=== PATIENT | female | born 1990 | race African-American/Black ===

== ENCOUNTER 2017-06-23 11:45 | Emergency (ER) | payer BC, OTHER, SELFPAY ==
[2017-06-23 12:31] LABS: Bilirubin Negative (Negative); Blood, Urine Negative (Negative); Glucose, Urine (Dipstick) Negative (Negative); Ketone, Urine Negative (Negative); Nitrite Negative (Negative); Protein, Urine (Dipstick) Negative (Neg-Trace); Urobilinogen 0.2 mg/dL (0.2-1.0)
[2017-06-23 12:33] LABS: Bacteria/HPF Rare-Few HPF (None Seen); Hyaline Casts/LPF 0-3 HYALINE CAST LPF (0-3 Hyaline); RBC/HPF 0-3 HPF (0-3)
== END 2017-06-23 15:17 | disposition left against medical advice (07) ==
LOC: ERS 11:45
DX: Z53.21 Procedure and treatment not carried out due to patient leaving prior to being seen by health care provider (principal)
CPT/HCPCS: 81003; 81015

== ENCOUNTER 2017-11-13 17:08 | Inpatient (IN) | payer OTHER ==
[~2017-11-13 17:08] MED LIST: Acetaminophen 500 MG TAB PO PRN; HYDROcodone/Acetaminophen 5/325 mg Tablet PO PRN; Ibuprofen 800 MG TAB PO PRN; LR / Pitocin 40 units/1000 ml 1,000 ML IV PRN; Lidocaine 1% (PF) 30 ML VIAL SC PRN; Misoprostol 200 MCG TAB PR PRN; Ondansetron HCl/PF 4 MG/2 ML Vial IVP PRN; Promethazine HCl 25 MG/ML VIAL IM PRN
[2017-11-13 17:32] VITALS: BMI 35.7
[2017-11-13] MEDS: Lactated Ringer's 1,000 ML IV SCH (17:40)
[2017-11-13 18:03] LABS: Hemoglobin 12.7 g/dL (12.0-16.0); Mean Corpuscular HGB CONC 32.4 g/dL (32.0-36.0); Mean Corpuscular Volume 86.5 fl (81.0-99.0); Mean Platelet Volume 9.6 fL (7.4-10.4); Platelet Count 127 thou/uL (130-400); RBC Distribution Width 14.3 % (11.5-14.5); Red Blood Cell (RBC) Count 4.54 mill/uL (4.20-5.40); White Blood Cell (WBC) Count 8.8 thou/uL (4.8-10.8)
[2017-11-13] MEDS: Misoprostol 100 MCG TAB VAG SCH ×2 (18:17→21:57)
[2017-11-13] MEDS ORDERED: Penicillin G Potassium 5 MILL.UNITS in Sodium Chloride 0.9% 100 ML IVPB SCH (18:30)
[2017-11-13 18:56] LABS: Syphilis Antibody Nonreactive (Nonreactive); Syphilis Antibody Index 0.03 S/CO (<1.00 Non-Reactive)
[2017-11-13 20:03] LABS: HBSAg Index 0.14 S/CO (0-0.99); Hep B Surf Ag Non-Reactive S/CO (NonReactive)
[2017-11-13] MEDS: Penicillin G 2.5 MILL.units 2.5 MILL.UNITS in Premix Bag 1 BAG IVPB SCH (21:57)
[2017-11-14] MEDS: Lactated Ringer's 1,000 ML IV SCH ×2 (01:13→08:20)
[2017-11-14] MEDS: Penicillin G 2.5 MILL.units 2.5 MILL.UNITS in Premix Bag 1 BAG IVPB SCH ×6 (01:13→21:31)
[2017-11-14] MEDS: Misoprostol 100 MCG TAB VAG SCH ×2 (01:14→03:11)
[2017-11-14] MEDS ORDERED: LR 500 ML/Oxytocin 10 units 500 ML ONE (03:04)
[2017-11-14] MEDS ORDERED: DISCONTINUE ALL PREVIOUS NARCOTICS FS SCH (04:45)
[2017-11-14] MEDS: Bupivacaine 0.5% 20 ML, Fentanyl 400 MCG in Sodium Chloride 0.9% 72 ML EPIDURAL SCH ×2 (05:50→14:10)
[2017-11-14] MEDS ORDERED: Acetaminophen 325 MG TAB PO PRN (05:53)
[2017-11-14] MEDS ORDERED: ePHEDrine/0.9% NaCl/PF SYRINGE 50 mg/10 ml SLOW IVP PRN (05:53)
[2017-11-14] MEDS ORDERED: Naloxone HCl 0.4 mg/ml Vial IVP PRN ×2 (05:53)
[2017-11-14] MEDS ORDERED: Ondansetron HCl/PF 4 MG/2 ML Vial IVP PRN (05:53)
[2017-11-14] MEDS ORDERED: Lactated Ringer's 500 ML IV PRN (05:53)
[2017-11-14] MEDS ORDERED: Eucerin (Mineral Oil/Petrolatum,White) 30 gm Jar TOP PRN (05:53)
[2017-11-14] MEDS ORDERED: Promethazine HCl 25 MG/ML VIAL IM PRN (05:53)
[2017-11-14] MEDS ORDERED: diphenhydrAMINE 50 MG/ML VIAL IVP PRN (05:53)
[2017-11-14] MEDS ORDERED: Communication Order-Pharmacy FS SCH (06:00)
[2017-11-14] MEDS ORDERED: Fentanyl 4mcg/Marcaine 0.1% Cassette 100 ML EPIDURAL SCH (06:00)
[2017-11-14] MEDS ORDERED: FLU VACC QS2017-18 36 mo. & older 0.5 ML SYRINGE IM ONE (09:00)
[2017-11-14] MEDS ORDERED: Dextrose 5%-Lactated Ringers 1,000 ML IV SCH (09:45)
--- NOTE | 2017-11-14 11:23 | PDOC.EVN ---
Event Note - Event Note Event Note: Neonatology Note I was notified by nursery staff that delivery attendance was requested for " arrhythmia" but no additional information available. I reviewed mom's chart and was unremarkable except for ?sickle cell carrier and 2 vessel umbilical cord. Currently undergoing induction. Discussed with L&D nurse and reports an "audible arrhythmia" after placement of a FSE and recurrent late decels. I was asked to discuss with mother the concern for the arrhythmia. I presented to mom's room and introduced myself. She was laying on her side with face mask in place. Baseline FHT was 120 with occasional skipped beat, no tachycardia. I discussed with mom that our presence was requested at the delivery but evaluation for "arrhythmia" would include placement on a monitor/EKG to determine nature of the rhythm and the baby would be taken to the nursery right after delivery and placed on a monitor. I explained that the skipped beats were likely PAC/PVC which are very common in labor and resolved shortly after delivery. If this was confirmed on monitor/EKG the patient would be brought immediately back to her room. Mother reported no history of arrhythmia in the family. Mom had the opportunity to ask questions.
[2017-11-14] MEDS ORDERED: Preparation H Ointment 28 GM TUBE PR PRN (22:18)
[2017-11-14] MEDS ORDERED: Milk Of Magnesia 30 ML UDCUP PO PRN (22:18)
[2017-11-14] MEDS ORDERED: Bisacodyl 10 MG SUPP PR PRN (22:18)
[2017-11-14] MEDS ORDERED: traMADol HCl 50 MG TAB PO PRN (22:18)
[2017-11-14] MEDS ORDERED: diphenhydrAMINE 25 MG CAP PO PRN (22:18)
--- NOTE | 2017-11-14 22:21 | PDOC.OPDEL ---
OB Operative/Delivery Note Delivery Dr/Surgeon: Alyssa Pre-Delivery Diagnosis: elective induction Procedure/Post Delivery Dx: spontaneous vaginal delivery Weeks gestation: 40 - Findings A Sex: male Weight: 8 lb 9 oz - 1 min: 8 - 5 min: 9 - Additional Findings/Plan Placenta delivered: spontaneous Repaired Obstetrical Laceration: right labial (1st degree perineal) Estimated blood loss: 300ml Post delivery plan: routine recovery
[2017-11-14] MEDS ORDERED: LR / Pitocin 40 units/1000 ml 1,000 ML IV SCH (22:30)
[2017-11-15] MEDS: Ibuprofen 800 MG TAB PO SCH ×3 (06:16→21:14)
--- NOTE | 2017-11-15 08:15 | PDOC.PP ---
Post Progress Note Post Day #: 1 PO intake tolerated: yes Flatus: yes Ambulation: yes Vital Signs (12 hours) Temp Pulse Resp BP BP Pulse Ox 11/15/17 07:56 97.9 F 82 20 117/56 L 11/15/17 05:00 97.6 F 80 20 11/15/17 04:00 97.6 F 80 20 130/61 11/15/17 01:40 99.0 F 99 20 115/57 L 11/15/17 00:38 98.8 F 110 H 20 95 11/15/17 00:36 98.9 F 110 H 20 120/61 95 Weight Weight 215 lb - Physical Examination General: NAD Cardiovascular: no m/r/g, RRR Respiratory: clear to auscultation bilaterally, non-labored breathing Abdominal: + bowel sounds, lochia, no distention, appropriately TTP Result Diagrams: 11/13/17 17:57 Additional Labs: Post Labs Hep Bs Antigen Non-Reactive S/CO (NonReactive) 11/13/17 17:56 - Assessment/Plan post day 0-1 doing well. routine care
[2017-11-15] MEDS ORDERED: Adacel (T-DAP) 0.5 ML VIAL IM ONE (09:00)
[2017-11-15] MEDS: Prenatal Vitamin 1 TAB PO SCH (09:31)
[2017-11-15] MEDS: Ferrous Sulfate 325 MG TAB PO SCH ×2 (09:31→18:40)
[2017-11-15] MEDS: Docusate Calcium (SURFAK) 240 MG CAP PO SCH ×2 (09:31→21:14)
[2017-11-15] MEDS: Misoprostol 100 MCG TAB VAG SCH ×2 (15:36→15:37)
[2017-11-15] MEDS: Lactated Ringer's 1,000 ML IV SCH (15:38)
[2017-11-16] MEDS: Ibuprofen 800 MG TAB PO SCH (04:23)
[2017-11-16 08:35] VITALS: BP 118/66; TEMP 97.6
--- NOTE | 2017-11-16 08:37 | PDOC.PP ---
Post Progress Note Post Day #: 2 PO intake tolerated: yes Flatus: yes Ambulation: yes Vital Signs (12 hours) Temp Pulse Resp BP 11/16/17 08:34 97.6 F 88 20 118/66 Weight Weight 215 lb - Physical Examination General: NAD Cardiovascular: no m/r/g, RRR Respiratory: clear to auscultation bilaterally, non-labored breathing Abdominal: + bowel sounds, lochia, no distention, appropriately TTP Result Diagrams: 11/13/17 17:57 Additional Labs: Post Labs Hep Bs Antigen Non-Reactive S/CO (NonReactive) 11/13/17 17:56 - Assessment/Plan ppd #2--doing well. d/c home f/u 6 weeks
[2017-11-16] MEDS: Prenatal Vitamin 1 TAB PO SCH (08:53)
[2017-11-16] MEDS: Docusate Calcium (SURFAK) 240 MG CAP PO SCH (08:53)
[2017-11-16] MEDS: Ferrous Sulfate 325 MG TAB PO SCH (08:54)
== END 2017-11-16 14:00 | disposition home or self-care (01) | DRG 775 ==
LOC: L&D 17:08 → 3SW 11-15 00:37
PROVIDERS: ADMIT Obstetrics & Gynecology; ATTEND Obstetrics & Gynecology
PROC: 10E0XZZ Delivery of Products of Conception, External Approach (ICD-10-PCS; principal; 2017-11-14)
PROC: 3E0P7VZ Introduction of Hormone into Female Reproductive, Via Natural or Artificial Opening (ICD-10-PCS; 2017-11-14)
PROC: 0HQ9XZZ Repair Perineum Skin, External Approach (ICD-10-PCS; 2017-11-14)
DX: O48.0 Post-term pregnancy (principal); O70.0 First degree perineal laceration during delivery; O76 Abnormality in fetal heart rate and rhythm complicating labor and delivery; O99.824 Streptococcus B carrier state complicating childbirth; Z3A.40 40 weeks gestation of pregnancy; Z37.0 Single live birth; Z87.891 Personal history of nicotine dependence
CPT/HCPCS: 36415; 51702; 85027; 86780; 87340; J0595; J2001; J2405; J2540; J2550; J3010; J3490; J7050; J7120

== ENCOUNTER 2018-12-10 17:04 | Emergency (ER) | payer OTHER ==
[2018-12-10 19:35] LABS: Bilirubin Negative (Negative); Blood, Urine Negative (Negative); Clarity CLOUDY (Clear); Glucose, Urine (Dipstick) Negative (Negative); Leukocyte Large (Negative); Nitrite Negative (Negative); Protein, Urine (Dipstick) Negative (Neg-Trace)
[2018-12-10 19:38] LABS: Bacteria/HPF 1+ HPF (None Seen); Hyaline Casts/LPF 7-10 HYALINE CAST LPF (0-3 Hyaline); Pathc Cast-AUWi Flag 1.76 (0-2.49); Pregnancy Test - Urine (BHCG) POSITIVE (Negative); Pregu Control Background? CLEAR/WHITE (CLR/WHITE); Pregu Control Bar Appear? YES (CONTROL BAR); RBC/HPF 0-3 HPF (0-3); Squamous Epithelial 21-50 HPF (0-3); Yeast-AUWi Flag 15.6 (0-25.0)
== END 2018-12-10 22:25 | disposition left against medical advice (07) ==
LOC: ERS 17:04
DX: Z53.21 Procedure and treatment not carried out due to patient leaving prior to being seen by health care provider (principal)
CPT/HCPCS: 81003; 81015; 81025; 87077; 87086

== ENCOUNTER 2018-12-10 23:25 | Day surgery (SDC) | payer OTHER ==
[2018-12-10 23:58] VITALS: BP 125/67; TEMP 98.6; BMI 36.6
--- NOTE | 2018-12-11 00:44 | PRG ---
DATE OF SERVICE: 12/11/2018 TIME OF SERVICE: 00:05 PRESENTING COMPLAINT: Vaginal pain. HISTORY OF PRESENT ILLNESS: Ms. Kaiser is a 28-year-old G2, P1, at 35 weeks' gestation who presents complaining of vaginal pain for 1 week. She states she has had no rupture of membranes. She has active fetus. She sees Dr. Shah. LEDGER CLERK HISTORY: x1. DEJON is 01/13. Previous of 8 pounds 9 ounce male. The patient has a history of Fanconi anemia. Father of the baby is negative. B positive, antibody negative. Pap negative. Rubella immune. VDRL nonreactive. Hepatitis B, GC, chlamydia negative. MEDICAL HISTORY: Fanconi anemia. SURGICAL HISTORY: Denies. ALLERGIES: DENIES. MEDICATIONS: vitamins. SOCIAL HISTORY: Denies tobacco, alcohol, or drug abuse. FAMILY HISTORY: Noncontributory. REVIEW OF SYSTEMS: Noncontributory. PHYSICAL EXAMINATION: GENERAL: White female, in no acute distress. VITAL SIGNS: Blood pressure 128/72, pulse 85, respirations 18, temperature 98.6. HEENT: Within normal limits. LUNGS: Clear to auscultation bilaterally. HEART: Regular rate and rhythm. ABDOMEN: Soft, nontender. No palpable contractions. FHT 140s. Vulva without lesions. Vagina without discharge. Cervix closed, long, and high. Cephalic presentation. EXTREMITIES: No clubbing, cyanosis, or edema. LABORATORY DATA: monitoring is carried out for more than 30 minutes. Category I heart rate tracing was noted without decelerations, positive accelerations. Baseline 140s to 150s. IMPRESSION: Discomforts of . No evidence of labor. PLAN: Discharge home. Keep scheduled followup with Dr. Shah. Job ID: [id number]
== END 2018-12-11 00:15 | disposition home or self-care (01) ==
LOC: L&D/OP 23:25
PROVIDERS: ATTEND Obstetrics & Gynecology
DX: O26.893 Other specified pregnancy related conditions, third trimester (principal); R10.2 Pelvic and perineal pain; Z79.899 Other long term (current) drug therapy; Z3A.35 35 weeks gestation of pregnancy
CPT/HCPCS: 99282

== ENCOUNTER 2019-01-04 08:15 | Inpatient (IN) | payer OTHER ==
[2019-01-04] MEDS ORDERED: NS / Oxytocin 40 units/1000ml 1,000 ML IV PRN ×2 (08:43→08:45)
[2019-01-04] MEDS ORDERED: Acetaminophen 500 MG TAB PO PRN (08:43)
[2019-01-04] MEDS ORDERED: Promethazine HCl 25 MG/ML VIAL IM PRN (08:43)
[2019-01-04] MEDS ORDERED: Ondansetron PF 4 MG/2 ML Vial IVP PRN (08:43)
[2019-01-04] MEDS ORDERED: Lidocaine 1% (PF) 30 ML VIAL SC PRN ×2 (08:43→08:45)
[2019-01-04] MEDS ORDERED: Butorphanol Tartrate 1 MG/ML VIAL SLOW IVP PRN (08:43)
[2019-01-04] MEDS ORDERED: Penicillin G Potassium 5 MILL.UNITS in Sodium Chloride 0.9% 100 ML IVPB SCH (08:45)
[2019-01-04] MEDS ORDERED: HYDROcodone/Acetaminophen 5/325 mg Tablet PO PRN ×2 (08:45)
[2019-01-04] MEDS ORDERED: Misoprostol 200 MCG TAB PR PRN (08:45)
[2019-01-04] MEDS ORDERED: Diphenoxylate HCl/Atropine Tablet PO PRN ×2 (08:45)
[2019-01-04] MEDS: Lactated Ringer's 1,000 ML IV SCH ×2 (08:45→12:45)
[2019-01-04] MEDS ORDERED: Ibuprofen 800 MG TAB PO PRN (08:45)
[2019-01-04] MEDS ORDERED: Carboprost 250 MCG/ML AMP IM PRN (08:45)
[2019-01-04] MEDS ORDERED: Methylergonovine 0.2 MG/ML VIAL IM PRN (08:45)
--- NOTE | 2019-01-04 08:55 | PDOC.LDHP ---
Labor and Delivery H&P Chief complaint: contractions HPI: 28 y/o at 38w5d, patient of Dr. Shah, presents with ctx and LOF. Denies VB or decreased FM. ROS neg for HEENT, cv, pulm, gi, gu, neuro, psych, skin, musculoskeletal or constitutional symptoms other than mentioned above. OB History Details: 1 prior term Current complications: none Past Medical History: Fanconi Anemia Current medications: pre- vitamins Previous surgical history: none Allergies/Adverse Reactions: Allergies Allergy/AdvReac Type Severity Reaction Status Date / Time No Known Allergies Allergy Verified 12/10/18 23:51 Social history: none - Physical Exam Vital signs reviewed and normal: yes General: NAD, breathing through contractions Lungs: nonlabored breathing Abdomen: gravid Extremeties: no edema FHT: category 1 (140s, mod variability, no decels but difficult to monitor) [place] contractions every: 2 mins - Vaginal Exam cm dilated: 6 Effacement: 75% Station: -2 - OB Labs Blood type: B RH: positive Antibody Screen: negative - Assessment L&D Assessment: term patient in labor - Plan Plan: admit to L&D, GBS antibiotic prophylaxis, informed consent obtained, anesthesia consult for pain management -: Dr. Shah notified and unavailable until noon. I will manage patient until that time.
[2019-01-04] MEDS ORDERED: Penicillin G Potassium 5 MILL.UNITS VIAL ONE (09:01)
[2019-01-04 09:10] LABS: Hemoglobin 12.2 g/dL (12.0-16.0); Mean Corpuscular HGB CONC 32.3 g/dL (32.0-36.0); Mean Corpuscular Hemoglobin 27.9 pg (27.0-31.0); Mean Corpuscular Volume 86.5 fL (78.0-98.0); Platelet Count 169 thou/uL (130-400); RBC Distribution Width 13.7 % (11.5-14.5); Red Blood Cell (RBC) Count 4.37 mill/uL (4.20-5.40); White Blood Cell (WBC) Count 8.5 thou/uL (4.8-10.8)
[2019-01-04] MEDS ORDERED: Fentanyl 4 mcg/Bup 0.1% Cadd 100 ML ONE (09:16)
[2019-01-04 09:53] VITALS: BMI 37.5
[2019-01-04 09:54] LABS: HBSAg Index 0.38 S/CO (0-0.99); Hep B Surf Ag Non-Reactive S/CO (NonReactive); Syphilis Antibody Nonreactive (Nonreactive); Syphilis Antibody Index 0.03 S/CO (<1.00 Non-Reactive)
[2019-01-04] MEDS ORDERED: Lidocaine 2% MPF 10 ML AMP (For Epidural Use) ONE (11:11)
[2019-01-04] MEDS ORDERED: Penicillin G 2.5 MILL.units 2.5 MILL.UNITS in Premix Bag 1 BAG IVPB SCH (13:00)
[2019-01-04] MEDS ORDERED: Adacel (T-DAP) 0.5 ML SYRINGE IM ONE (15:34)
[2019-01-04] MEDS ORDERED: Benzocaine-Menthol 82.5 ML CAN TOP PRN (15:34)
[2019-01-04] MEDS ORDERED: Preparation H Ointment 28 GM TUBE PR PRN (15:34)
[2019-01-04] MEDS ORDERED: Acetaminophen/Codeine 30-300mg Tablet PO PRN ×2 (15:34)
[2019-01-04] MEDS ORDERED: Lanolin Ointment 7 GM TUBE TOP PRN (15:34)
[2019-01-04] MEDS ORDERED: Milk Of Magnesia 30 ML UDCUP PO PRN (15:34)
[2019-01-04] MEDS ORDERED: Zolpidem Tartrate 5 MG TAB PO PRN (15:34)
[2019-01-04] MEDS ORDERED: Bisacodyl 10 MG SUPP PR PRN (15:34)
[2019-01-04] MEDS ORDERED: diphenhydrAMINE 25 MG CAP PO PRN (15:34)
--- NOTE | 2019-01-04 15:38 | PDOC.OPDEL ---
OB Operative/Delivery Note Delivery Dr/Surgeon: Alyssa Pre-Delivery Diagnosis: active labor Procedure/Post Delivery Dx: spontaneous vaginal delivery Weeks gestation: 38 Anesthesia: epidural - Findings A Sex: female Weight: 8 lb 13 oz - 1 min: 7 - 5 min: 7 - Additional Findings/Plan Placenta delivered: spontaneous Repaired Obstetrical Laceration: none Estimated blood loss: 450ml Post delivery plan: routine recovery
[2019-01-04] MEDS ORDERED: NS / Oxytocin 40 units/1000ml 1,000 ML IV SCH (15:45)
[2019-01-04] MEDS: Ibuprofen 800 MG TAB PO SCH (20:03)
[2019-01-05] MEDS: Ibuprofen 800 MG TAB PO SCH ×3 (06:45→21:30)
[2019-01-05] MEDS: Ferrous Sulfate 325 MG TAB PO SCH ×3 (06:45→17:39)
[2019-01-05] MEDS: Docusate Calcium (SURFAK) 240 MG CAP PO SCH ×3 (06:45→21:30)
--- NOTE | 2019-01-05 07:50 | PDOC.PP ---
Post Progress Note Post Day #: 1 Subjective: Doing well, no complaints. PO intake tolerated: yes Ambulation: yes Vital Signs (12 hours) Pulse Ox 01/04/19 20:00 99 Weight Weight 233 lb - Physical Examination General: NAD Respiratory: non-labored breathing Abdominal: lochia (normal), no distention, appropriately TTP Fundus firm & at: below umbilicus Neurological: no gross focal deficits Psychiatric: A&Ox3, normal affect Result Diagrams: 01/04/19 08:59 Additional Labs: Post Labs Blood Type B POSITIVE 01/04/19 08:59 Hep Bs Antigen Non-Reactive S/CO (NonReactive) 01/04/19 08:59 (1) (spontaneous vaginal delivery) Code(s): O80 - ENCOUNTER FOR FULL-TERM UNCOMPLICATED DELIVERY Status: Acute - Assessment/Plan in NICU. Continue routine PP care. Plan d/c tomorrow.
[2019-01-05] MEDS: Prenatal Vitamin 1 TAB PO SCH (10:21)
[2019-01-06] MEDS: Ibuprofen 800 MG TAB PO SCH ×2 (05:29→14:38)
--- NOTE | 2019-01-06 06:45 | PDOC.PP ---
Post Progress Note Post Day #: PPD#2 Subjective: Doing well, no c/o. PO intake tolerated: yes Ambulation: yes Vital Signs (12 hours) Temp Pulse Resp BP Pulse Ox 01/05/19 19:55 98.0 F 86 18 116/63 98 Weight Weight 105.687 kg - Physical Examination General: NAD Respiratory: non-labored breathing Neurological: no gross focal deficits Psychiatric: normal affect Result Diagrams: 01/04/19 08:59 Additional Labs: Post Labs Blood Type B POSITIVE 01/04/19 08:59 Hep Bs Antigen Non-Reactive S/CO (NonReactive) 01/04/19 08:59 - Assessment/Plan DC to Boarding status per pt. request. Precautions given. RTC [address] Shah.
[2019-01-06] MEDS: Docusate Calcium (SURFAK) 240 MG CAP PO SCH (09:17)
[2019-01-06] MEDS: Prenatal Vitamin 1 TAB PO SCH (09:17)
[2019-01-06] MEDS: Ferrous Sulfate 325 MG TAB PO SCH (09:18)
[2019-01-06 11:34] VITALS: BP 128/62; TEMP 97.9
== END 2019-01-06 14:40 | disposition home or self-care (01) | DRG 807 ==
LOC: L&D/OP 08:15 → L&D 09:15 → 3SW 18:13
PROVIDERS: ADMIT Obstetrics & Gynecology; ATTEND Obstetrics & Gynecology
PROC: 10E0XZZ Delivery of Products of Conception, External Approach (ICD-10-PCS; principal; 2019-01-04)
DX: O99.824 Streptococcus B carrier state complicating childbirth (principal); Z37.0 Single live birth; Z3A.38 38 weeks gestation of pregnancy
CPT/HCPCS: 36415; 51702; 85027; 86780; 86850; 86900; 86901; 87340; 99285; J2001; J2540

== ENCOUNTER 2019-01-09 22:15 | Emergency (ER) | payer OTHER ==
[2019-01-10] MEDS ORDERED: HYDROcodone/Acetaminophen 10/325 mg Tablet ONE ×2 (00:17→00:24)
[2019-01-10] MEDS ORDERED: Ketorolac Tromethamine 30 MG/ML VIAL ONE (00:17)
== END 2019-01-10 00:30 | disposition home or self-care (01) ==
LOC: ERS 22:15
DX: K64.4 Residual hemorrhoidal skin tags (principal); F17.210 Nicotine dependence, cigarettes, uncomplicated
CPT/HCPCS: 96372; J1885

== ENCOUNTER 2019-01-12 10:05 | Inpatient (IN) | payer OTHER ==
--- NOTE | 2019-01-12 10:52 | RAD ---
EXAM: Single view of the chest HISTORY: Fever and chills. Recent vaginal delivery COMPARISON: None FINDINGS: Single view of the chest shows a normal sized cardiomediastinal silhouette. There is no norma dence of consolidation, mass, or pleural effusion. The bones are unremarkable. IMPRESSION: No evidence of acute cardiopulmonary disease
[2019-01-12 11:13] LABS: Clarity Cloudy (Clear); Leukocyte Large (Negative); Nitrite Negative (Negative); Protein, Urine (Dipstick) Trace mg/dL (Neg-Trace); Specific Gravity, Urine 1.015 (1.005-1.030); pH, Urine 8.5 (5.0-9.0)
[2019-01-12 11:14] LABS: Bilirubin Negative (Negative); Blood, Urine Large (Negative); Glucose, Urine (Dipstick) Negative (Negative)
[2019-01-12 11:16] LABS: WBC/HPF 21-50 HPF (0-3)
[2019-01-12 11:17] LABS: Bacteria/HPF 1+ HPF (None Seen); Hyaline Casts/LPF 0-3 HYALINE CAST LPF (0-3 Hyaline)
[2019-01-12 11:19] LABS: ALT (SGPT) 23 U/L (8-55); AST (SGOT) 14 U/L (5-34); Albumin 4.1 g/dL (3.5-5.0); Alkaline Phosphatase 146 U/L (40-150); Anion Gap 13 mmol/L (10-20); BUN (Urea Nitrogen) 7 mg/dL (7.0-18.7); Bilirubin, Total 0.7 mg/dL (0.2-1.2); Calc. Creatinine Clearance 0 mL/min (70-130); Calcium 9.5 mg/dL (7.8-10.44); Carbon Dioxide 24 mmol/L (22-29); Chloride 105 mmol/L (98-107); Estimated GFR-MDRD Greater than 90; Globulin 3.7 g/dL (2.4-3.5); Glucose 92 mg/dL (70-105); Potassium 3.8 mmol/L (3.5-5.1); Protein, Total 7.8 g/dL (6.0-8.3); Sodium 138 mmol/L (136-145)
[2019-01-12 11:20] LABS: Band 8 % (5-11); Hemoglobin 13.6 g/dL (12.0-16.0); Lymphocytes 18 % (21-51); MDiff Complete? YES; Mean Corpuscular HGB CONC 32.4 g/dL (32.0-36.0); Mean Corpuscular Hemoglobin 27.9 pg (27.0-31.0); Mean Corpuscular Volume 85.9 fL (78.0-98.0); Mean Platelet Volume 8.8 fL (7.4-10.4); Monocytes 4 % (0-10); Neutrophil 70 % (42-75); Platelet Count 218 thou/uL (130-400); RBC Distribution Width 13.3 % (11.5-14.5); White Blood Cell (WBC) Count 7.7 thou/uL (4.8-10.8)
[2019-01-12] MEDS ORDERED: Ampicillin/Sulbactam 3 GM in Sodium Chloride 0.9% 100 ML IVPB SCH (11:30)
--- NOTE | 2019-01-12 11:49 | ULT ---
Pelvic sonogram transabdominal and transvaginal imaging with duplex evaluation HISTORY: Pelvic pain and bleeding. Fever. Vaginal delivery 8 days ago. FINDINGS: Urinary bladder is unremarkable. Incompletely distended. Uterus retains a heterogeneous echotexture. It is slightly retroverted and measures up to 16.7 cm. En dometrium is distended with small amount of fluid and echogenic material measuring up to 2.6 cm. No internal flow evident. No free fluid apparent within the pelvis. Right ovary is 4.0 cm and left is 4.1 cm. Each has a normal appearance with good color and spectral Doppler flow. IMPRESSION: uterus with small amount of debris remaining within the endometrial cavity. La ck of internal flow argues against retained products of conception
--- NOTE | 2019-01-12 13:08 | PDOC.EVN ---
Event Note - Event Note Event Note: OBGYN Admission note 01/12/19 @1300 I have seen the patient in the ED (around 1230) DX: PP fever, probable metritis I have dictated my full H&P
[2019-01-12] MEDS ORDERED: Ketorolac Tromethamine 30 MG/ML VIAL ONE (13:09)
[2019-01-12] MEDS ORDERED: metroNIDAZOLE 500 MG/100 ML BAG ONE (13:09)
[2019-01-12] MEDS ORDERED: Acetaminophen 500 MG TAB ONE (13:09)
--- NOTE | 2019-01-12 13:09 | CT ---
CT abdomen and pelvis with IV contrast HISTORY: Abdominal pain and fever. Vaginal delivery 7 days ago. FINDINGS: Lung bases are clear. There are scattered small, somewhat subtle lobular low-density lesion s scattered throughout the liver, too small to characterize on this exam. Probable benign origin. The spleen, kidneys, adrenal glands, and pancreas have a normal CT appearance. No enlarged lymph node s or free fluid are apparent. Uterus remains somewhat boggy. Fluid distention of the endometrium is as reported on recent pelvic sonogram. No evidence of bowel obstruction. IMPRESSION: appearance of the uterus. No significant abnormalities are otherwise demonstra mary ann.
--- NOTE | 2019-01-12 13:28 | HP ---
TIME OF EVALUATION: 12:30. LOCATION: ER. The patient was first seen by Dr. De Santiago with Emergency Medicine. REASON FOR EVALUATION: Suspected metritis, with a fever of 102.8. HISTORY OF PRESENT ILLNESS IN BRIEF: This patient is a 28-year-old G2, P2, that had a vaginal delivery on 01/04/[address] Shah. This was an uncomplicated vaginal delivery at 38 weeks. She had an estimated blood loss of about 450 mL by her notes. She arrives due to fever at home and a change to her vaginal discharge. She has a history of GBS positive screening, but did not have chorioamnionitis or fever during her 01/04 through 01/06 stay. Baby stayed in the NICU and is currently in the NICU for "fluid in lungs." She does also states some urinary frequency, but no dysuria. She is not and denies that her breasts are abnormally firm. REVIEW OF SYSTEMS: Complete review of systems was checked and is otherwise negative unless specified in the HPI. It is important to note that she is 8 days . PAST MEDICAL HISTORY: Otherwise negative. OB HISTORY: Significant for two vaginal deliveries. The last being on January 04. ALLERGIES: NONE. PAST SOCIAL HISTORY: Negative for alcohol, tobacco, or drug use. SURGICAL HISTORY: Negative. PHYSICAL EXAMINATION: VITAL SIGNS: The patient's pulse was in the 90s, but her temperature is 102.8. GENERAL: She is in no acute distress. BREASTS: I performed a breast examination with the partner in the room and did not feel that the breasts were overly engorged. There was no evidence of milky discharge per breast. There is no erythema on the breast. She is not or pumping. GASTROINTESTINAL: On abdominal exam, there is no uterine tenderness, although the fundus is hard to palpate due to her BMI. PELVIC EXAM: Vaginal discharge has a slight anaerobic odor. LABORATORY ASSESSMENT: White blood cell count in the ER is 7.7, hematocrit is 42, platelets are normal at 218. Creatinine is normal at 0.82. AST, ALT are normal at 14 and 23, respectively. Urine does show some leukocyte esterase that is large with 1+ urine bacteria. However, there are 46 squamous cells, as this was a voided specimen. On ultrasound of the pelvis, pelvic ultrasound shows uterus with a small amount of "debris" remaining in the endometrial cavity. There is a lack of internal flow making retained products of conception less likely. On chest x-ray, chest x-ray was performed and shows no evidence of acute cardiopulmonary disease. ASSESSMENT AND PLAN: 1. This is a patient who is 8 days , history of GBS positive status, who presents with a temperature of 102.8 and suspected metritis. I do not suspect breast engorgement or DVT in the lower legs. I did perform an examination of the legs and there is no evidence of cord or tenderness on calf palpation. Additionally, the patient is ambulatory and did not have a . 2. fever: I have ordered the following tests: A cath UA, cath urine culture, blood cultures, CT scan of the abdomen to rule out for septic pelvic thrombophlebitis, I have ordered Unasyn and Flagyl IV. I have also ordered a VPIII and gonorrhea, chlamydia PCR. It is important to note that her serum lactate level was 0.7, which is normal. 3. I have sent a secure text to Dr. Shah via [employer], and the patient is aware that I have notified Dr. Shah. Job ID: [id number]
[2019-01-12 14:04] LABS: Bilirubin Negative (Negative); Blood, Urine Large (Negative); Clarity CLEAR (Clear); Glucose, Urine (Dipstick) Negative (Negative); Leukocyte Moderate (Negative); Nitrite Negative (Negative); Protein, Urine (Dipstick) Negative (Neg-Trace); Specific Gravity, Urine 1.027 (1.002-1.036)
[2019-01-12 14:05] LABS: Bacteria/HPF None Seen HPF (None Seen); Hyaline Casts/LPF 4-6 HYALINE CAST LPF (0-3 Hyaline); Pathc Cast-AUWi Flag 0.95 (0-2.49); RBC/HPF 21-50 HPF (0-3)
[2019-01-12] MEDS: Lactated Ringer's 1,000 ML IV SCH (14:45)
[2019-01-12] MEDS ORDERED: Ondansetron ODT 4 MG TAB SL PRN (15:02)
[2019-01-12] MEDS ORDERED: HYDROcodone/Acetaminophen 5/325 mg Tablet PO PRN ×2 (15:02)
[2019-01-12] MEDS ORDERED: Ondansetron PF 4 MG/2 ML Vial IVP PRN (15:02)
[2019-01-12] MEDS ORDERED: ISOVUE-370 76%-LOCM 1 ML ONE (15:49)
--- NOTE | 2019-01-12 17:22 | PDOC.EVN ---
Event Note - Event Note Event Note: OBGYN range conservationist CT results follow up: Some endometrial "fluid" in cavity noted...I consider that nonspecific at this time at less than 10 days PP. No abscess noted, no OVT or SPT mentioned.
--- NOTE | 2019-01-12 17:23 | PDOC.EVN ---
Event Note - Event Note Event Note: Lab check: [employer] 3 neg
[2019-01-12] MEDS ORDERED: metroNIDAZOLE 500 MG in Premix Bag 1 BAG IVPB SCH (18:00)
[2019-01-12] MEDS: Ampicillin/Sulbactam 3 GM in Sodium Chloride 0.9% 100 ML IVPB SCH (18:00)
[2019-01-12] MEDS: metroNIDAZOLE 500 MG in Premix Bag 1 BAG IVPB SCH ×2 (19:19→19:51)
[2019-01-12] MEDS: Acetaminophen 500 MG TAB PO PRN (19:57)
[2019-01-13] MEDS: Ampicillin/Sulbactam 3 GM in Sodium Chloride 0.9% 100 ML IVPB SCH ×4 (00:05→17:50)
[2019-01-13] MEDS: metroNIDAZOLE 500 MG in Premix Bag 1 BAG IVPB SCH ×4 (02:15→19:56)
[2019-01-13] MEDS: Lactated Ringer's 1,000 ML IV SCH ×2 (02:15→13:05)
--- NOTE | 2019-01-13 06:09 | PDOC.PP ---
Post Progress Note Post Day #: 9, on 01/04/19 Subjective: feels better, no issues overnight PO intake tolerated: yes Flatus: yes Ambulation: yes Vital Signs (12 hours) Temp Pulse Resp BP Pulse Ox 01/13/19 00:00 98.6 F 56 L 20 137/82 96 01/12/19 19:45 98.9 F 64 20 128/68 95 Afebrile since horn arrival with Tmax 98.9 - Physical Examination General: NAD Cardiovascular: no m/r/g Respiratory: clear to auscultation bilaterally Abdominal: + bowel sounds, no distention, appropriately TTP Extremities: negative homans (B) Neurological: no gross focal deficits Psychiatric: A&Ox3, normal affect Result Diagrams: 01/12/19 10:36 01/12/19 10:36 (1) fever Code(s): O86.4 - PYREXIA OF UNKNOWN ORIGIN FOLLOWING DELIVERY Status: Acute - Assessment/Plan PP fever with suspected metritis. UA with some possible evidence UTI. Do not suspect breast engorement (exam benign and not BF): Plan: 1. continue unasyn and flagyl 2. CT was negative 3. ED sent GC and CHL and blood cultures...orders not seen [facility] but likely in [place] (via ED physician communication yesterday) 4. Follow temps 5. Home after afebrile X 24-36 hrs
[2019-01-13] MEDS: Acetaminophen 500 MG TAB PO PRN ×2 (10:20→21:16)
[2019-01-13] MEDS ORDERED: hydrALAZINE 20 MG/ML VIAL SLOW IVP SCH (19:30)
--- NOTE | 2019-01-13 19:39 | PDOC.PP ---
Post Progress Note Post Day #: 9 Subjective: called to bedside with bp 180s/90s systolic and chest pain. When I arrived pt was up to go to the bathroom. She denies chest pain and states it spontaneously resolved. Reports it as a throbbing chest pain when it was present. PE chest clear heart RRR abdomen softer NTTP, neg abdi's dtr 1+ cmp,cbc, troponin, ekg pending hydralizine 10mg now repeat bp 15min Vital Signs (12 hours) Temp Pulse Resp BP Pulse Ox 01/13/19 16:30 98.5 F 64 20 127/78 01/13/19 12:15 98.1 F 147/84 H 01/13/19 09:05 98.6 F 89 20 136/74 97 Result Diagrams: 01/12/19 10:36 01/12/19 10:36
[2019-01-13 19:41] LABS: Hemoglobin 13.1 g/dL (12.0-16.0); Mean Corpuscular HGB CONC 31.5 g/dL (32.0-36.0); Mean Corpuscular Hemoglobin 27.8 pg (27.0-31.0); Mean Corpuscular Volume 88.2 fL (78.0-98.0); Mean Platelet Volume 8.1 fL (7.4-10.4); Platelet Count 200 thou/uL (130-400); White Blood Cell (WBC) Count 5.7 thou/uL (4.8-10.8)
[2019-01-13 20:04] LABS: ALT (SGPT) 19 U/L (8-55); AST (SGOT) 12 U/L (5-34); Albumin 3.9 g/dL (3.5-5.0); Alkaline Phosphatase 125 U/L (40-150); Anion Gap 13 mmol/L (10-20); BUN (Urea Nitrogen) 7 mg/dL (7.0-18.7); Bilirubin, Total 0.4 mg/dL (0.2-1.2); Calc. Creatinine Clearance 0 mL/min (70-130); Calcium 9.6 mg/dL (7.8-10.44); Carbon Dioxide 27 mmol/L (22-29); Chloride 104 mmol/L (98-107); Estimated GFR-MDRD Greater than 90; Globulin 3.4 g/dL (2.4-3.5); Glucose 82 mg/dL (70-105); Potassium 3.7 mmol/L (3.5-5.1); Protein, Total 7.3 g/dL (6.0-8.3); Sodium 140 mmol/L (136-145)
[2019-01-14] MEDS: Ampicillin/Sulbactam 3 GM in Sodium Chloride 0.9% 100 ML IVPB SCH ×2 (00:04→06:30)
[2019-01-14] MEDS ORDERED: Ibuprofen 800 MG TAB PO PRN (00:11)
[2019-01-14] MEDS: metroNIDAZOLE 500 MG in Premix Bag 1 BAG IVPB SCH ×2 (02:05→07:36)
[2019-01-14] MEDS: Lactated Ringer's 1,000 ML IV SCH ×2 (04:55→07:36)
--- NOTE | 2019-01-14 08:35 | PRG ---
DATE OF SERVICE: 01/14/2019 SUBJECTIVE: The patient was admitted on 01/12/2019 for endomyometritis and placed on Unasyn and Flagyl. She has been afebrile during the course of her stay and will be discontinuing her antibiotics this morning. Unfortunately, yesterday she began spiking severe range blood pressures up into the 180s, requiring IV medication for intervention, IV hydralazine. The patient's blood pressures have stabilized into the 140s for the last 12 hours without any other intervention at this time. The patient reports that she is feeling a lot better. She denies any fever, pain, headache, chest pain, or shortness of breath. Her laboratory workup has all been within normal limits including trace protein. OBJECTIVE: VITAL SIGNS: Most recent set of vitals; blood pressure is 147/79, saturating 99% on room air. She has respiratory rate of 20, pulse of 50, and temperature of 98.2. GENERAL: She appears to be in no acute distress. She is alert and oriented, cooperative and pleasant to interact with. ABDOMEN: Fundus is nontender. ASSESSMENT AND PLAN: The patient is hospital day 3 for readmission for endomyometritis, now spiking severe range blood pressures last night with no other evidence of preeclampsia. She has not spiked any more since administration of hydralazine 10 mg IV. We will continue hospitalization now for blood pressure monitoring. Should she spike again, we will need to consider intervention with oral antihypertensives and possibly magnesium for seizure prophylaxis. Job ID: [id number]
[2019-01-14 16:01] VITALS: BP 122/79; TEMP 97.6
--- NOTE | 2019-01-15 14:23 | DIS ---
DATE OF ADMISSION: 01/12/2019 DATE OF DISCHARGE: 01/14/2019 PRINCIPAL DIAGNOSIS: fever. PRINCIPAL PROCEDURE: 1. Intravenous antibiotics. 2. The patient underwent an abdominal pelvic CT. 3. The patient underwent a pelvic and transvaginal ultrasound. 4. The patient underwent a chest x-ray. HOSPITAL COURSE: In brief, the patient was admitted on 01/12/2019 as a patient who was recently and admitted with fever. Chest x-ray on admission was negative. She was admitted on behalf of Dr. Shah. I admitted the patient and began intravenous antibiotics which were Unasyn and Flagyl. VP3 was collected, which was normal. Gonorrhea and chlamydia PCR was collected, but that result was still pending by discharge. The patient defervesced and was discharged home by Dr. Grace Fu. It is important to note that I was not the discharge physician, therefore, cannot comment on the final events prior to discharge. However, on review of the vital signs, I do see that the patient had resolution of her fever by time of discharge. Urine culture was sent, and the urine culture revealed mixed tone. Blood culture was reported at 48 hours and showed no growth at 48 hours. Job ID: [id number]
== END 2019-01-14 17:10 | disposition home or self-care (01) | DRG 776 ==
LOC: ERS 10:05 → 3SE 13:04
PROVIDERS: ADMIT Obstetrics & Gynecology; ATTEND Obstetrics & Gynecology
DX: O86.12 Endometritis following delivery (principal); R03.0 Elevated blood-pressure reading, without diagnosis of hypertension
CPT/HCPCS: 36415; 71045; 74177; 76856; 80053; 81003; 81015; 83605; 84484; 85025; 85027; 87040; 87086; 87480; 87491; 87510; 87591; 87660; 93005; 93010; A4353; J0295; J0360; J1885; J3490; Q9966

== ENCOUNTER 2021-01-25 19:14 | Emergency (ER) | payer OTHER ==
[2021-01-26 00:09] LABS: SARS-CoV-2 PCR by NAA Not Detected (NotDetected)
== END 2021-01-25 19:39 | disposition home or self-care (01) ==
LOC: ERS 19:14
DX: R05 Cough (principal); R43.8 Other disturbances of smell and taste; Z20.822 Contact with and (suspected) exposure to COVID-19
CPT/HCPCS: 99283; U0003; U0005

== ENCOUNTER 2025-04-09 11:41 | Emergency (ER) | payer MEDICAID, OTHER ==
[2025-04-09] MEDS ORDERED: Mag-Al 1200 mg/1200 mg/30 ML UDCUP ONE (12:45)
[2025-04-09] MEDS ORDERED: Lidocaine Viscous Sol 2% 15 ml UD Cup ONE (12:45)
[2025-04-09 13:09] LABS: Bacteria/HPF None Seen HPF (None Seen); CAUTI Indications for Culture Pelvic or flank pain; Glucose, Urine (Dipstick) Normal (Negative); Leukocyte Negative Leu/uL (Negative); Protein, Urine (Dipstick) Negative (Neg-Trace); RBC/HPF None Seen HPF (0-3); Specific Gravity, Urine 1.015 (1.002-1.036); WBC/HPF 0-3 HPF (0-3)
[2025-04-09 13:09] LABS: #Basophils 0.05 10x3/uL (0.0-0.2); #Eosinophils 0.17 10x3/uL (0.0-0.7); #Monocytes 0.33 10x3/uL (0.11-0.59); #Neutrophils 1.69 10x3/uL (1.40-6.50); %Basophils 1.2 % (0.0-1.0); %Eosinophils 4.0 % (0.0-10.0); %Lymphocytes 47.6 % (21.0-51.0); %Monocytes 7.7 % (0.0-10.0); %Neutrophils 39.3 % (42.0-75.0); Hematocrit 39.8 % (36.0-47.0); Hemoglobin 12.6 g/dL (12.0-16.0); Mean Corpuscular Hemoglobin 28.3 pg (27.0-31.0); Mean Corpuscular Volume 89.4 fL (78.0-98.0); Platelet Count 180 10x3/uL (130-400); Red Blood Cell (RBC) Count 4.45 mill/uL (4.20-5.40); White Blood Cell (WBC) Count 4.29 10x3/uL (4.8-10.8)
[2025-04-09 13:14] LABS: ALT (SGPT) 18 U/L (Less than 34); AST (SGOT) 36 U/L (11-34); Albumin 4.3 g/dL (3.1-4.5); Alkaline Phosphatase 56 U/L (40-110); Anion Gap 11 mmol/L (10-20); BUN (Urea Nitrogen) 8 mg/dL (7.0-18.7); Bilirubin, Total 0.3 mg/dL (0.3-1.2); Calc. Creatinine Clearance 0 mL/min (70-130); Calcium 8.9 mg/dL (7.8-10.44); Carbon Dioxide 26 mmol/L (22-29); Chloride 109 mmol/L (98-107); Globulin 2.8 g/dL (2.4-3.5); Glucose 57 mg/dL (70-105); Lipase 43 U/L (8-78); Potassium 3.8 mmol/L (3.5-5.1); Sodium 142 mmol/L (136-145)
[2025-04-09 13:17] LABS: BHCG - Serum Negative (NEGATIVE); Pregs Control Background? CLEAR/WHITE (CLR/WHITE); Pregs Control Bar Appear? YES (CONTROL BAR)
[2025-04-09 13:34] LABS: Urine Culture Reflex No No
== END 2025-04-09 14:01 | disposition left against medical advice (07) ==
LOC: ERS 11:41
DX: R10.13 Epigastric pain (principal)
CPT/HCPCS: 80053; 81001; 83690; 84703; 85025; 99283